=== PATIENT | male | born 1995 | race Caucasian/White ===

== ENCOUNTER 2017-05-06 18:17 | Emergency (ER) | payer OTHER ==
[~2017-05-06] VITALS: Ht 190.5 cm; Wt 95.2 kg
[2017-05-06] MEDS ORDERED: Mobic15 MG PO (19:16)
== END 2017-05-06 19:21 | disposition home or self-care (01) ==
LOC: ER 18:17
DX: M25.562 Pain in left knee (principal); Z87.891 Personal history of nicotine dependence
CPT/HCPCS: 99282